=== PATIENT | female | born 1950 | race Caucasian/White ===

== ENCOUNTER 2021-07-13 12:56 | Emergency (ER) | payer OTHER ==
[~2021-07-13] VITALS: Ht 160 cm; Wt 254.5 kg
--- NOTE | 2021-07-13 12:56 | NUR ---
SOB X 3 MONTHS,WORSE X 2 DAYS,TRIED DIFFERENT INHALERS BUT NOTHING IS WORKING. PT HAS A HISTORY OF ASTHMA AND COPD. PT IS A&OX4. PT WAS ON 4L NC UPON ARRIVAL AND O2 WAS 93 PT WAS DECREASED TO 1L AND O2 REMAINED THE SAME. DR SHI AT BEDSIDE. IV WAS ESTABLISHED L HAND 20G, LABS WERE DRAWN AND COLLECTED. BLANKET PROVIDED FOR COMFORT MEASURES.
--- NOTE | 2021-07-13 13:06 | NUR ---
BS IS 170; AWARE
[2021-07-13] MEDS ORDERED: NITROGLYCERIN PACKET 1 GM PACKET ONE (13:20)
[2021-07-13] MEDS ORDERED: FUROSEMIDE 40 MG/4 ML VIAL ONE (13:20)
--- NOTE | 2021-07-13 13:20 | NUR ---
NATURAL SCIENCES MANAGER AT PT'S BEDSIDE
--- NOTE | 2021-07-13 13:26 | NUR ---
SENIOR REGULATORY AFFAIRS SPECIALIST AT PT'S BEDSIDE
[2021-07-13] MEDS ORDERED: NITROGLYCERIN PACKET 1 GM PACKET TD ONE (13:30)
[2021-07-13] MEDS ORDERED: ALBUTEROL FS 2.5 MG/3 ML VIAL.NEB NEB ONE (13:30)
[2021-07-13] MEDS ORDERED: FUROSEMIDE 40 MG/4 ML VIAL IV ONE (13:30)
[2021-07-13] MEDS ORDERED: ALBUTEROL FS 2.5 MG/3 ML VIAL.NEB ONE (13:31)
[2021-07-13 14:07] LABS: BASOPHILS % (AUTO) 0.5 % (0.0-2.0); HEMATOCRIT 38 % (33-45); HEMOGLOBIN 11.7 g/dL (11.5-14.8); LYMPHOCYTES # (AUTO) 0.9 K/uL (0.8-4.8); LYMPHOCYTES % (AUTO) 11.2 % (20.0-44.0); MEAN CORPUSCULAR HGB CONC 31 g/dl (31.0-36.0); MEAN CORPUSCULAR VOLUME 82 fL (82-100); MONOCYTES # (AUTO) 0.8 K/uL (0.1-1.30); MONOCYTES % (AUTO) 10.8 % (2.0-12.0); NEUTROPHILS # (AUTO) 6.1 K/uL (1.8-8.9); NEUTROPHILS % (AUTO) 77.5 % (43.0-81.0); PLATELET COUNT (AUTO) 251 K/uL (150-450); RED BLOOD CELL COUNT(AUTO) 4.58 MIL/uL (4.0-5.2); WHITE BLOOD COUNT (AUTO) 7.9 K/uL (4.3-11.0)
[2021-07-13 14:31] LABS: CALCIUM, SERUM 8.4 mg/dL (8.5-10.1); CREATININE 0.7 mg/dL (0.6-1.3); POTASSIUM 4.8 mmol/L (3.5-5.1)
[2021-07-13 14:42] LABS: ALBUMIN 3.6 g/dL (3.4-5.0); BILIRUBIN,DIRECT 0.1 mg/dL (0.0-0.2); BILIRUBIN,TOTAL 1.2 mg/dL (0.2-1.0)
--- NOTE | 2021-07-13 16:01 | NUR ---
COVID ANTIGEN COLLECTED AND SENT TO LAB
--- NOTE | 2021-07-13 17:21 | NUR ---
[facility] ER ACCEPTED BY DR Geni SLAUGHTER. CALL [phone] FOR RN TO RN REPORT VIA [facility]. MANAGEMENT SCIENTIST TIME [id number].
--- NOTE | 2021-07-13 17:48 | NUR ---
REPORT GIVEN TO FRANCIS FOR [facility]
[2021-07-13 17:53] VITALS: BP 156/74
--- NOTE | 2021-07-13 18:44 | NUR ---
REPORT GIVEN TO [facility]
== END 2021-07-13 18:56 | disposition short-term general hospital (02) ==
LOC: ER 12:58
DX: I11.0 Hypertensive heart disease with heart failure (principal); I50.9 Heart failure, unspecified; R77.8 Other specified abnormalities of plasma proteins; J45.909 Unspecified asthma, uncomplicated; E11.9 Type 2 diabetes mellitus without complications; Z20.822 Contact with and (suspected) exposure to COVID-19
CPT/HCPCS: 36415; 71045; 80048; 80076; 82962; 83605; 83880; 84484; 85025; 85730; 87040 ×2; 87426; 93005; 94640; 96374; 99291; C9803; J1940

== ENCOUNTER 2023-03-01 13:56 | Emergency (ER) | payer OTHER ==
[~2023-03-01] VITALS: Ht 167.6 cm; Wt 130.2 kg
[2023-03-01 14:49] LABS: BASOPHILS % (AUTO) 0.3 % (0.0-2.0); HEMATOCRIT 34 % (33-45); HEMOGLOBIN 10.4 g/dL (11.5-14.8); LYMPHOCYTES # (AUTO) 0.5 K/uL (0.8-4.8); LYMPHOCYTES % (AUTO) 5.9 % (20.0-44.0); MEAN CORPUSCULAR HEMOGLOBIN 26 PG (26.0-33.0); MEAN CORPUSCULAR HGB CONC 31 g/dl (31.0-36.0); MEAN CORPUSCULAR VOLUME 86 fL (82-100); MONOCYTES # (AUTO) 0.8 K/uL (0.1-1.30); MONOCYTES % (AUTO) 9.3 % (2.0-12.0); NEUTROPHILS # (AUTO) 7.6 K/uL (1.8-8.9); NEUTROPHILS % (AUTO) 84.5 % (43.0-81.0); PLATELET COUNT (AUTO) 222 K/uL (150-450); RED BLOOD CELL COUNT(AUTO) 3.96 MIL/uL (4.0-5.2); RED CELL DISTRIBUTION WIDTH 17.6 % (11.5-15.0)
[2023-03-01 14:55] LABS: ABG OXYGEN SATURATION 85.4 % (92.0-98.5); ABG PCO2 46.3 mmHg (35.0-45.0); ABG PH 7.362 (7.350-7.450); ABG PO2 50.6 mmHg (75.0-100.0); ABG TOTAL HEMOGLOBIN 11.4 G/dL (12.0-16.0); COHb 0.9 % (0.5-1.5); MetHb 0.3 % (0.0-1.5); O2Hb 84.4 % (94.0-97.0); SITE, ABG Left Radial; VENT MODE, BG 2 L NC O2
[2023-03-01 15:04] LABS: SERUM AMMONIA 31 umol/L (11-32)
[2023-03-01 15:05] LABS: CALCIUM, SERUM 8.4 mg/dL (8.5-10.1); CARBON DIOXIDE 25 mmol/L (21-32); CHLORIDE 106 mmol/L (98-107); CREATININE 2.3 mg/dL (0.6-1.3); GLUCOSE 161 mg/dL (74-106); POTASSIUM 4.4 mmol/L (3.5-5.1); SODIUM SERUM 144 mmol/L (136-145); UREA NITROGEN, BLOOD 38 mg/dL (7-18)
[2023-03-01 15:10] LABS: ACETAMINOPHEN < 10 ug/ml (10-30); ALANINE AMINOTRANSFERASE 106 U/L (12-78); ALBUMIN 3.7 g/dL (3.4-5.0); ALCOHOL, BLOOD < 3 mg/dL (0-10); ALKALINE PHOSPHATASE 112 U/L (46-116); ASPARTATE AMINOTRANSFERASE 130 U/L (15-37); BILIRUBIN,DIRECT 0.5 mg/dL (0.0-0.2); BILIRUBIN,TOTAL 1.6 mg/dL (0.2-1.0); TOTAL PROTEIN, SERUM 6.5 g/dL (6.4-8.2)
[2023-03-01 15:11] LABS: SALICYLATE < 0.2 mg/dL (2.8-20.0)
[2023-03-01 15:31] LABS: THYROID STIMULATING HORMONE 1.873 uIU/mL (0.358-3.74)
[2023-03-01 15:44] LABS: LYMPHOCYTES % (MANUAL) 10 % (16-48); MONOCYTES % (MANUAL) 7 % (0-11.0); MYELOCYTES % 1 % (0-0); NEUTROPHILS % (MANUAL) 82 (42-76)
[2023-03-01 15:45] LABS: PLATELET ESTIMATE ADEQUATE
[2023-03-01] MEDS ORDERED: FUROSEMIDE 40 MG/4 ML VIAL IV ONE (16:00)
[2023-03-01] MEDS ORDERED: ASPIRIN 325 MG TABLET PO ONE (16:00)
[2023-03-01] MEDS ORDERED: FUROSEMIDE 40 MG/4 ML VIAL ONE (16:12)
[2023-03-01] MEDS ORDERED: ASPIRIN 325 MG TABLET ONE (16:12)
[2023-03-01 19:09] VITALS: BP 111/71; TEMP 98.1; O2SAT 93
== END 2023-03-01 19:10 | disposition short-term general hospital (02) ==
LOC: ER 14:21
DX: R55 Syncope and collapse (principal); I10 Essential (primary) hypertension; E11.9 Type 2 diabetes mellitus without complications; J45.909 Unspecified asthma, uncomplicated; Z60.2 Problems related to living alone
CPT/HCPCS: 99285; 96374; 93005 ×2; 82803; 71045; 70450; 82140; 85025; 80048; 80076; 85007; 36415; 84443; 84484 ×2; 83880; 36600 ×2; 94799; 80143; 80320; J1940; G0480